=== PATIENT | female | born 1955 | race Caucasian/White ===

== ENCOUNTER 2018-01-27 12:12 | Day surgery (SDC) | payer MEDICARE ==
[2018-01-27] MEDS ORDERED: Sodium Chloride 0.9% 1,000 ML IV STA (12:40)
[2018-01-27] MEDS ORDERED: Sodium Chloride 0.9% 10 ML Syringe FLUSH PRN ×2 (12:40→18:10)
[2018-01-27] MEDS ORDERED: Ondansetron 4 MG/2 ML SDV IVPUSH ONE (12:40)
[2018-01-27] MEDS ORDERED: HYDROmorphone 0.5 MG/0.5 ML SYRINGE IVPUSH ONE ×2 (12:41→14:50)
[2018-01-27] MEDS ORDERED: Iopamidol 612 MG/ML 100 ML Bottle IVPUSH ONE (13:45)
[2018-01-27] MEDS ORDERED: Diatrizoate Meglumine/Diatrizoate Sodium 37% 120 ML Bottle PO ONE (13:45)
[2018-01-27] MEDS ORDERED: Sodium Chloride 0.9% 10 ML Syringe FLUSH ONE (13:45)
--- NOTE | 2018-01-27 15:09 | EDM.PDOC ---
ED HPI GENERAL MEDICAL PROBLEM - General Chief Complaint: Abdominal Pain Stated Complaint: ABD PAIN Time Seen by Provider: 01/27/18 12:14 Source of Information: Reports: Patient, Provider History Limitations: Reports: No Limitations - History of Present Illness INITIAL COMMENTS - FREE TEXT/NARRATIVE: The patient presents from the [facility] for abdominal pain. The pain started about 5 days ago. The pain is in the periumbilical area to the RUQ and radiates to the back. She has some nausea and vomiting with it. At the clinic she had labs done and her WBC was normal along with her CMP. She was sent here for a CT. The cause of her abdominal pain was not found yet. She still has her gallbladder and appendix. She does not have a fever but she does have chills. She has no chest pain, shortness of breath, diarrhea, or dysuria. She has no medical problems. The pain is constant and nothing affects it like food or drink. Onset: Gradual Duration: Day(s): (5) Location: Reports: Abdomen Quality: Reports: Sharp Severity: Severe Improves with: Reports: None Worsens with: Reports: None Associated Symptoms: Reports: Fever/Chills, Loss of Appetite, Nausea/Vomiting. Denies: Confusion, Chest Pain, Headaches, Shortness of Breath Abdominal Pain Score (Numeric/FACES): 9 - Related Data Allergies Allergy/AdvReac Type Severity Reaction Status Date / Time No Known Allergies Allergy Verified 01/27/18 12:24 Home Meds: Home Meds . [No Known Home Meds] 01/27/18 [History] Past Medical History - Past Health History Medical/Surgical History: Denies Medical/Surgical History Social & Family History - Tobacco Use Smoking Status *Q: Current Every Day Smoker Years of Tobacco use: 40 Packs/Tins Daily: 0.5 ED ROS GENERAL - Review of Systems Review Of Systems: See Below Constitutional: Reports: Chills. Denies: Fever HEENT: Reports: No Symptoms Respiratory: Reports: No Symptoms Cardiovascular: Reports: No Symptoms Endocrine: Reports: No Symptoms GI/Abdominal: Reports: Abdominal Pain, Nausea, Vomiting. Denies: Diarrhea : Reports: No Symptoms Musculoskeletal: Reports: No Symptoms Skin: Reports: No Symptoms ED EXAM, GI/ABD - Physical Exam Exam: See Below Exam Limited By: No Limitations General Appearance: Alert, No Apparent Distress Ears: Normal External Exam Nose: Normal Inspection Head: Atraumatic, Normocephalic Neck: Normal Inspection Respiratory/Chest: No Respiratory Distress, Lungs Clear, Normal Breath Sounds Cardiovascular: Regular Rate, Rhythm, No Edema, No Murmur GI/Abdominal Exam: Soft, No Organomegaly, No Mass, Tender (Moderate tenderness to the RUQ to the periumbilical area) Course - Vital Signs Last Recorded V/S: Last Vital Signs Temp 97.0 F 01/27/18 12:24 Pulse 91 01/27/18 12:24 Resp BP 150/79 H 01/27/18 12:24 Pulse Ox 97 01/27/18 12:24 - Orders/Labs/Meds Orders: Active Orders 24 hr Category Date Time Status Peripheral IV Care [RC] . DIRECTED Care 01/27/18 12:41 Active Abdomen Pelvis w Cont [CT] Stat Exams 01/27/18 12:40 Taken Lactated Ringers [Ringers, Lactated] 1,000 ml Med 01/27/18 16:00 Active IV ASDIRECTED Sodium Chloride 0.9% [Saline Flush] Med 01/27/18 12:40 Active 10 ml FLUSH ASDIRECTED PRN ED Antiemetic Medication Reflex [OM.PC] Stat Oth 01/27/18 12:40 Ordered Peripheral IV Insertion Adult [OM.PC] Stat Oth 01/27/18 12:40 Ordered Medication Orders Lactated Ringer's (Ringers, Lactated) 1,000 mls @ 125 mls/hr IV ASDIRECTED YAEL Sodium Chloride (Saline Flush) 10 ml FLUSH ASDIRECTED PRN PRN Reason: Keep Vein Open Last Admin: 01/27/18 12:58 Dose: 10 ml Meds: Medications Generic Name Dose Route Start Last Admin Trade Name Freq PRN Reason Stop Dose Admin Lactated Ringer's 1,000 mls @ 125 mls/hr 01/27/18 16:00 Ringers, Lactated IV ASDIRECTED YAEL Sodium Chloride 10 ml 01/27/18 12:40 01/27/18 12:58 Saline Flush FLUSH 10 ml ASDIRECTED PRN Administration Keep Vein Open Discontinued Medications Generic Name Dose Route Start Last Admin Trade Name Freq PRN Reason Stop Dose Admin Citric Acid/Sodium Citrate 30 ml 01/27/18 15:57 Bicitra Solution PO 01/27/18 15:58 ONETIME ONE Diatrizoate Meglum/Diatrizoate Sod 90 ml 01/27/18 13:45 01/27/18 14:40 Gastrografin 37% PO 01/27/18 13:46 90 ml ONETIME ONE Administration Famotidine 20 mg 01/27/18 15:57 Pepcid IVPUSH 01/27/18 15:58 ONETIME ONE Hydromorphone HCl 0.5 mg 01/27/18 12:41 01/27/18 13:04 Dilaudid IVPUSH 01/27/18 12:42 0.5 mg ONETIME ONE Administration Hydromorphone HCl 0.5 mg 01/27/18 14:50 01/27/18 15:01 Dilaudid IVPUSH 01/27/18 14:51 0.5 mg ONETIME ONE Administration Sodium Chloride 1,000 mls @ 1,000 mls/hr 01/27/18 12:40 01/27/18 12:51 Normal Saline IV 01/27/18 13:39 1,000 mls/hr .BOLUS STA Administration Iopamidol 100 ml 01/27/18 13:45 01/27/18 14:40 Isovue-300 (61%) IVPUSH 01/27/18 13:46 100 ml ONETIME ONE Administration Ondansetron HCl 4 mg 01/27/18 12:40 01/27/18 12:51 Zofran IVPUSH 01/27/18 12:41 4 mg ONETIME ONE Administration Sodium Chloride 10 ml 01/27/18 13:45 01/27/18 14:40 Saline Flush FLUSH 01/27/18 13:46 10 ml ONETIME ONE Administration - Re-Assessments/Exams Free Text/Narrative Re-Assessment/Exam: 01/27/18 16:09 I ordered an IV NS 1L bolus, zofran 4mg IV, dilaudid 0.5mg IV, and a CT of her abdomen and pelvis. Her WBC was normal. Her CMP looks good. Her UA shows no UTI. Her CT shows that there is a diffuse decrease in hepatic parenchymal density, consistent with fatty infiltration. Multiple calcified gallstones are present. Also may be lodged in the gallbladder neck. High density in the gallbladder suggests presence of sludge. Clinical correlation to exclude cholecystitis suggested. She had more pain after the scan. I ordered more dilaudid 0.5mg IV. All her liver enzymes and bili are normal. It is not obstructing the common bile duct. I talked with our surgeon stone dresser Dr Saucedo and he said this is not emergent and can wait until they get home. I talked to the patient and she has been in pain for 5 days and would like to have it out. Dr Fitch will come see the patient. Departure - Departure Time of Disposition: 16:15 Disposition: DC/Tfer to [facility] Condition: Good Clinical Impression: Gall stones Abdominal pain Qualifiers: Abdominal location: upper abdomen, unspecified Qualified Code(s): R10.10 - Upper abdominal pain, unspecified - Discharge Information - My Orders Last 24 Hours: My Active Orders 01/27/18 12:40 Abdomen Pelvis w Cont [CT] Stat Sodium Chloride 0.9% [Saline Flush] 10 ml FLUSH ASDIRECTED PRN ED Antiemetic Medication Reflex [OM.PC] Stat Peripheral IV Insertion Adult [OM.PC] Stat 01/27/18 12:41 Peripheral IV Care [RC] . DIRECTED - Assessment/Plan Last 24 Hours: My Active Orders 01/27/18 12:40 Abdomen Pelvis w Cont [CT] Stat Sodium Chloride 0.9% [Saline Flush] 10 ml FLUSH ASDIRECTED PRN ED Antiemetic Medication Reflex [OM.PC] Stat Peripheral IV Insertion Adult [OM.PC] Stat 01/27/18 12:41 Peripheral IV Care [RC] . DIRECTED
[2018-01-27] MEDS ORDERED: Citric Acid/Sodium Citrate Solution 30 ML Cup PO ONE (15:57)
[2018-01-27] MEDS ORDERED: Famotidine 20 MG/2 ML SDV IVPUSH ONE (15:57)
[2018-01-27] MEDS ORDERED: Lactated Ringers 1,000 ML IV SCH (16:00)
[2018-01-27] MEDS ORDERED: Ondansetron 4 MG/2 ML SDV ONE (16:09)
[2018-01-27] MEDS ORDERED: Midazolam 1 MG/ML 2 ML SDV ONE (16:09)
[2018-01-27] MEDS ORDERED: Lactated Ringers 1,000 ML ONE (16:09)
[2018-01-27] MEDS ORDERED: Rocuronium 50 MG/5 ML Vial ONE (16:09)
[2018-01-27] MEDS ORDERED: ceFAZolin 1 GM Vial ONE (16:09)
[2018-01-27] MEDS ORDERED: fentaNYL 250 MCG/5 ML SDV ONE (16:09)
[2018-01-27] MEDS ORDERED: Propofol 200 MG/20 ML SDV ONE (16:09)
[2018-01-27] MEDS ORDERED: Succinylcholine/Normal Saline 100 MG/5 ML Syringe ONE (16:09)
[2018-01-27] MEDS ORDERED: Dexamethasone 4 MG/ML 5 ML MDV ONE (16:10)
[2018-01-27] MEDS ORDERED: Citric Acid/Sodium Citrate Solution 30 ML Cup ONE (16:21)
--- NOTE | 2018-01-27 16:47 | HP ---
DATE OF ADMISSION: 01/27/2018 INTRODUCTION: This 62-year-old female presents to the emergency room with significant right upper quadrant abdominal pain. She states she has been sick over the last 3 or 4 days and was traveling back home to [place], she decided to stop in the emergency room since she was too uncomfortable. CT scan in the emergency room showed multiple stones within the gallbladder and a possible impacted stone in the cystic duct. She has a normal white blood cell count and the rest of the electrolytes are normal. ALLERGIES: The patient has no allergies. CURRENT MEDICATIONS: Aleve for arthritis. PAST SURGICAL HISTORY: Include section, tubal ligation, rotator cuff repair, and biceps tendon repair on the right side. SOCIAL HISTORY: The patient is . She lives in [place]. She is retired. She does smoke. REVIEW OF SYSTEMS: Negative for all systems, except for arthritis. CARDIOVASCULAR: Normal. RESPIRATORY: Negative. PHYSICAL EXAMINATION: HEENT: Normal. CHEST: Lungs are clear bilaterally. HEART: Normal sinus rhythm without murmur. ABDOMEN: Mildly obese. Tender to palpation in the right upper quadrant. No evidence of hernias. Bowel sounds are normal. EXTREMITIES: Have good range of motion. No edema. NEUROLOGIC: Grossly intact. ASSESSMENT: Acute cholecystitis and cholelithiasis. PLAN: I discussed the risks, benefits, and expected outcomes of a laparoscopic cholecystectomy with this patient and her . We will proceed to the operating room from the emergency room now. MMNEWTON /[id number]
[2018-01-27] MEDS ORDERED: Albuterol 6.7 GM Inhaler INH ONE (17:18)
[2018-01-27] MEDS ORDERED: Phenylephrine/Normal Saline 100 MCG/ML 10 ML Syringe ONE (17:19)
[2018-01-27] MEDS ORDERED: Neostigmine Methylsulfate 1 MG/ML 5 ML Syringe ONE (17:19)
--- NOTE | 2018-01-27 17:28 | PCM.PREANE ---
Preanesthetic Assessment - Anesthesia/Transfusion/Family Hx Anesthesia History: Prior Anesthesia Without Reaction Family History of Anesthesia Reaction: No - Review of Systems General: Malaise, Appetite Pulmonary: Cough, Sputum (Smoker, 1/2 ppd, productive cough at times chronic. ) Cardiovascular: No Symptoms, Other (Stress Test a few years ago was negative. ) Gastrointestinal: Abdominal Pain, Decreased Appetite, Nausea Neurological: Numbness, Pre-Existing Deficit (Cannot feel 2 of her fingers on the right hand, states it is from her rhumatoid arthritis. ) Other: Reports: None - Physical Assessment NPO Status Date: 01/27/18 NPO Status Time: 14:45 O2 Sat by Pulse Oximetry: 97 Vital Signs: Last Vital Signs Temp 36.1 C 01/27/18 12:24 Pulse 91 01/27/18 12:24 Resp BP 150/79 H 01/27/18 12:24 Pulse Ox 97 01/27/18 12:24 Height: 1.57 m Weight: 98.43 kg ASA Class: 2 Mental Status: Alert & Oriented x3 Airway Class: Mallampati = 2 Dentition: Reports: Normal Dentition Thyro-Mental Finger Breadths: 3 Mouth Opening Finger Breadths: 2 ROM/Head Extension: Full Lungs: Clear to Auscultation, Normal Respiratory Effort, Decreased Breath Sounds Cardiovascular: Regular Rate, Regular Rhythm - Lab Values: Obtained from [facility] hgb 16.8 hct 49.3 plt 184 k 4.2 creatinine 1.0 GFR 56 - Imaging/EKG Impressions: Done in ER. SR with a Right BBB. 75 bpm. Reviewed by the physician. - Allergies Allergies/Adverse Reactions: Allergies Allergy/AdvReac Type Severity Reaction Status Date / Time No Known Allergies Allergy Verified 01/27/18 12:24 - Anesthesia Plan Pre-Op Medication Ordered: Antacids - Acknowledgements Anesthesia Type Planned: General Anesthesia Pt an Appropriate Candidate for the Planned Anesthesia: Yes Alternatives and Risks of Anesthesia Discussed w Pt/Guardian: Yes Pt/Guardian Understands and Agrees with Anesthesia Plan: Yes PreAnesthesia Questionnaire - Past Health History Medical/Surgical History: Denies Medical/Surgical History Cardiovascular History: Reports: High Cholesterol, Hypertension Musculoskeletal History: Reports: RA - Past Surgical History Female Surgical History: Reports: Section Musculoskeletal Surgical History: Reports: Shoulder Surgery - SUBSTANCE USE Smoking Status *Q: Current Every Day Smoker - HOME MEDS Home Medications: Home Meds Naproxen Sodium [Aleve] 2 cap PO BID 01/27/18 [History] - CURRENT (IN HOUSE) MEDS Current Meds: Current Medications Lactated Ringer's (Ringers, Lactated) 1,000 mls @ 125 mls/hr IV ASDIRECTED YAEL Sodium Chloride (Saline Flush) 10 ml FLUSH ASDIRECTED PRN PRN Reason: Keep Vein Open Last Admin: 01/27/18 12:58 Dose: 10 ml Discontinued Medications Albuterol (Proventil Hfa) Confirm Administered Dose 6.7 gm INH .STK-MED ONE Stop: 01/27/18 17:19 Cefazolin Sodium (Ancef) Confirm Administered Dose 2 gm .ROUTE .STK-MED ONE Stop: 01/27/18 16:10 Citric Acid/Sodium Citrate (Bicitra Solution) 30 ml PO ONETIME ONE Stop: 01/27/18 15:58 Last Admin: 01/27/18 16:22 Dose: 30 ml Citric Acid/Sodium Citrate (Bicitra Solution) Confirm Administered Dose 30 ml .ROUTE .STK-MED ONE Stop: 01/27/18 16:22 Dexamethasone (Dexamethasone) Confirm Administered Dose 20 mg .ROUTE .STK-MED ONE Stop: 01/27/18 16:11 Diatrizoate Meglum/Diatrizoate Sod (Gastrografin 37%) 90 ml PO ONETIME ONE Stop: 01/27/18 13:46 Last Admin: 01/27/18 14:40 Dose: 90 ml Famotidine (Pepcid) 20 mg IVPUSH ONETIME ONE Stop: 01/27/18 15:58 Last Admin: 01/27/18 16:22 Dose: 20 mg Fentanyl (Sublimaze) Confirm Administered Dose 250 mcg .ROUTE .STK-MED ONE Stop: 01/27/18 16:10 Glycopyrrolate () Confirm Administered Dose 1 mg .ROUTE .STK-MED ONE Stop: 01/27/18 17:20 Hydromorphone HCl (Dilaudid) 0.5 mg IVPUSH ONETIME ONE Stop: 01/27/18 12:42 Last Admin: 01/27/18 13:04 Dose: 0.5 mg Hydromorphone HCl (Dilaudid) 0.5 mg IVPUSH ONETIME ONE Stop: 01/27/18 14:51 Last Admin: 01/27/18 15:01 Dose: 0.5 mg Sodium Chloride (Normal Saline) 1,000 mls @ 1,000 mls/hr IV .BOLUS STA Stop: 01/27/18 13:39 Last Admin: 01/27/18 12:51 Dose: 1,000 mls/hr Lactated Ringer's (Ringers, Lactated) Confirm Administered Dose 1,000 mls @ as directed .ROUTE .STK-MED ONE Stop: 01/27/18 16:10 Iopamidol (Isovue-300 (61%)) 100 ml IVPUSH ONETIME ONE Stop: 01/27/18 13:46 Last Admin: 01/27/18 14:40 Dose: 100 ml Midazolam HCl (Versed 1 Mg/Ml) Confirm Administered Dose 2 mg .ROUTE .STK-MED ONE Stop: 01/27/18 16:10 Neostigmine Methylsulfate (Neostigmine) Confirm Administered Dose 5 mg .ROUTE .STK-MED ONE Stop: 01/27/18 17:20 Ondansetron HCl (Zofran) 4 mg IVPUSH ONETIME ONE Stop: 01/27/18 12:41 Last Admin: 01/27/18 12:51 Dose: 4 mg Ondansetron HCl (Zofran) Confirm Administered Dose 4 mg .ROUTE .STK-MED ONE Stop: 01/27/18 16:10 Phenylephrine HCl (Phenylephrine In Ns 100 Mcg/Ml) Confirm Administered Dose 1 mg .ROUTE .STK-MED ONE Stop: 01/27/18 17:20 Propofol (Diprivan 20 Ml) Confirm Administered Dose 400 mg .ROUTE .STK-MED ONE Stop: 01/27/18 16:10 Rocuronium [place] (Zemuron) Confirm Administered Dose 50 mg .ROUTE .STK-MED ONE Stop: 01/27/18 16:10 Sodium Chloride (Saline Flush) 10 ml FLUSH ONETIME ONE Stop: 01/27/18 13:46 Last Admin: 01/27/18 14:40 Dose: 10 ml Succinylcholine Chloride (Succinylcholine In Ns Pf) Confirm Administered Dose 100 mg .ROUTE .STK-MED ONE Stop: 01/27/18 16:10
[2018-01-27] MEDS ORDERED: HYDROmorphone 0.5 MG/0.5 ML Syringe IVPUSH PRN (17:33)
[2018-01-27] MEDS ORDERED: fentaNYL 100 MCG/2 ML SDV IVPUSH PRN (17:33)
[2018-01-27] MEDS ORDERED: diphenhydrAMINE 50 MG/ML SDV IVPUSH PRN (17:33)
[2018-01-27] MEDS ORDERED: Haloperidol Lactate 5 MG/ML SDV IVPUSH ONE (17:33)
[2018-01-27] MEDS ORDERED: Albuterol 0.083% 2.5 MG/3 ML Neb Soln NEB ONE (17:33)
--- NOTE | 2018-01-27 18:09 | PCM.POSTAN ---
POST ANESTHESIA ASSESSMENT - MENTAL STATUS Mental Status: Other (Drowsy, Arousable to name. ) - VITAL SIGNS Pulse Rate: 94 SaO2: 97 Resp Rate: 17 Blood Pressure: 155/58 Temperature: 36.0 C - RESPIRATORY Respiratory Status: Respiratory Rate WNL, Airway Patent, O2 Saturation Stable, Supplemental Oxygen - CARDIOVASCULAR CV Status: Pulse Rate WNL, Blood Pressure Stable - GASTROINTESTINAL GI Status: No Symptoms - PAIN Pain Score: 0 - POST OP HYDRATION Hydration Status: Adequate & Stable
[2018-01-27] MEDS ORDERED: Morphine 2 MG/ML Syringe IVPUSH PRN (18:10)
[2018-01-27] MEDS: Acetaminophen/oxyCODONE 325-5 MG Tab PO PRN (20:34)
[2018-01-27] MEDS: Lactated Ringers 1,000 ML IV SCH (21:17)
--- NOTE | 2018-01-27 21:53 | OR ---
DATE OF OPERATION: 01/27/2018 SURGEON: Dank Saucedo MD PREOPERATIVE DIAGNOSIS: 1. Acute cholecystitis. 2. Cholelithiasis. POSTOPERATIVE DIAGNOSIS: 1. Acute cholecystitis. 2. Cholelithiasis. OPERATION PERFORMED: Laparoscopic cholecystectomy. ANESTHESIA: General. ESTIMATED BLOOD LOSS: Minimal. SPECIMENS: Gallbladder and stone. OPERATIVE FINDINGS: Thin, swollen gallbladder and a large single impacted stone. INDICATIONS FOR PROCEDURE: This is a 62-year-old female, who has had a several-day history of right upper quadrant abdominal pain. She was traveling through [place] and stopped in the [facility]. CT scan showed a large stone impacted in the Martin pouch of the gallbladder. No other abnormalities were noted. Physical examination showed marked tenderness in the right upper quadrant. DESCRIPTION OF PROCEDURE: After adequate preparation, trocars were placed in the abdomen, and the abdomen was insufflated. Examination of the abdomen showed a moderately distended gallbladder that was tense. I could not grab it with a grasper and the aspiration needle. The bile was so thick, that it could not be aspirated through the normal needle technique. I needed to burn a hole in the top of the fundus of the gallbladder, and with a suction device, then suctioned out the remaining thickened bile within the gallbladder, so that I could grab onto this. The gallbladder was then grabbed at the fundus with a grasper and elevated over the liver. The cystic triangle structures were dissected free. There was a large impacted stone, which made it somewhat difficult to grab the gallbladder, but I was able to identify both the artery and the duct. These were triply clipped and divided. The gallbladder was then taken off the liver bed using blunt, sharp, and Bovie dissection. Only minimal bleeding occurred in the liver bed. The gallbladder was placed within a sterile retrieval bag and brought out through the epigastric trocar site. This site needed to be dilated, and then was later closed with a [id number] Vicryl suture. The abdomen was then reinsufflated, and the right upper quadrant was irrigated with a liter of saline and suctioned clear. No upper abdominal abnormalities were noted. She does have some adhesions in the lower midline from her prior . The abdomen was desufflated and the skin was closed with Monocryl. MMODAL /[id number]
[2018-01-28] MEDS: Acetaminophen/oxyCODONE 325-5 MG Tab PO PRN ×2 (05:07→08:58)
[2018-01-28] MEDS: Lactated Ringers 1,000 ML IV SCH (06:56)
--- NOTE | 2018-01-28 07:13 | CT ---
CT abdomen and pelvis Technique: Multiple axial sections were obtained from above the dome of the diaphragm inferiorly through the pubic symphysis. Intravenous and oral contrast was utilized. Delayed images were also obtained through the abdomen and pelvis. Comparison: No prior abdominal imaging. Findings: Incidental small area of focal fatty eventration is seen within the right posterior hemidiaphragm. Liver shows mild diminished density compatible with fatty infiltration. Spleen appears within normal limits. Adrenal glands show no nodule. Kidneys show symmetric contrast enhancement without hydronephrosis or mass. There is mild cortical thinning within portions of the right kidney compatible with slight atrophy. Large calcified gallstone is seen within the gallbladder neck. Pancreas is within normal limits. Aorta shows atherosclerotic change without aneurysm. No retroperitoneal adenopathy or mesenteric abnormalities are seen. No pelvic mass or adenopathy is seen. No findings of appendicitis are seen. No evidence of diverticulitis. No free fluid is seen. Delayed images show contrast within the distal ureters and within the bladder. Bone window settings were reviewed which appear within normal limits for the patient's age. Impression: 1. Large gallstone within the gallbladder neck. 2. Other incidental findings. Nothing acute is seen. Diagnostic code #3 Agree with preliminary report issued by [employer] ([facility] preliminary report dictated on 01/27/18, 4:22 PM Central Time)
--- NOTE | 2018-01-28 08:20 | PCM.SN ---
- Free Text/Narrative Note: VSS. Afeb. Pain better. O2 sat a little low but with ambulation should improve. No distress from patient. Discharge instructions given. Can discharge.
--- NOTE | 2018-01-28 09:04 | PCM48HPAN ---
Post Anesthesia Note - EVALUATION WITHIN 48HRS OF ANESTHETIC Vital Signs in Normal Range: Yes Patient Participated in Evaluation: Yes Respiratory Function Stable: Yes Airway Patent: Yes Cardiovascular Function Stable: Yes Hydration Status Stable: Yes Pain Control Satisfactory: Yes Nausea and Vomiting Control Satisfactory: Yes Mental Status Recovered: Yes
[2018-01-28] MEDS ORDERED: Acetaminophen/oxyCODONE 325-5 MG Tab PO PRN (09:42)
== END 2018-01-28 10:27 | disposition home or self-care (01) ==
LOC: JD.ED 12:12 → JD.SDS 16:00 → JD.MS 18:10 → JD.SDS 01-28 10:27
PROVIDERS: ATTEND Surgery
DX: K80.10 Calculus of gallbladder with chronic cholecystitis without obstruction (principal); M19.90 Unspecified osteoarthritis, unspecified site; F17.210 Nicotine dependence, cigarettes, uncomplicated; Z79.899 Other long term (current) drug therapy
CPT/HCPCS: 47562; 74177; 93005; 94640; 94762; 96361; 96374; 96375; 96376; 99285; A9270; J0330; J0690; J1100; J1170; J2250; J2370; J2405; J2704; J2710; J3010; J3490; J7040; J7050; J7120; Q9963; Q9967; 00790